=== PATIENT | male | born 1945 | race Caucasian/White ===

== ENCOUNTER 2022-01-06 11:27 | Day surgery (SDC) | payer MEDICARE ==
[~2022-01-06] VITALS: Ht 177.8 cm; Wt 117.1 kg
[2022-01-06] MEDS ORDERED: LISI40TA13 PO (11:57)
[2022-01-06 12:06] VITALS: BP 144/100
[2022-01-06 13:10] VITALS: BP 148/99
[2022-01-06 13:30] VITALS: BP 140/96
== END 2022-01-06 13:45 | disposition home or self-care (01) ==
LOC: SSTAY O 11:27
PROVIDERS: ATTEND Radiology Vascular & Interventional Radiology
DX: R22.1 Localized swelling, mass and lump, neck (principal); Z79.899 Other long term (current) drug therapy
CPT/HCPCS: 20206; 36415; 38505; 76942